=== PATIENT | female | born 1980 | race Caucasian/White ===

== ENCOUNTER → 2016-12-01 | Outpatient (CLI) | payer MEDICAID | LOC: FIMAGING 10:11 | PROVIDERS: ATTEND Internal Medicine | DX: K76.0 Fatty (change of) liver, not elsewhere classified (principal) ==

== ENCOUNTER 2017-01-03 22:33 | Emergency (ER) | payer MEDICAID ==
[2017-01-03 22:46] VITALS: TEMP 98.1; O2SAT 95
[2017-01-03] MEDS ORDERED: chlordiazePOXIDE 25 MG CAP PO ONE (23:49)
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
[2017-01-04 01:22] VITALS: BP 130/84; PULSE 93; RESP 12
== END 2017-01-04 01:20 | disposition home or self-care (01) ==
DX: S00.83XA Contusion of other part of head, initial encounter (principal); S80.12XA Contusion of left lower leg, initial encounter; V49.50XA Passenger injured in collision with unspecified motor vehicles in traffic accident, initial encounter; Y92.410 Unspecified street and highway as the place of occurrence of the external cause

== ENCOUNTER → 2018-07-14 | Outpatient (CLI) | payer MEDICAID | LOC: FIMAGING 11:13 | PROVIDERS: ATTEND Registered Nurse | DX: M79.641 Pain in right hand (principal) ==

== ENCOUNTER 2018-09-07 19:09 | Emergency (ER) | payer MEDICAID ==
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
[2018-09-07 19:36] LABS: PLATELET COUNT 181 10^3/uL (150-400)
[2018-09-08] MEDS ORDERED: CHLORDIAZEPOXIDE 25MG PREPK#6 BTL TAKEHOME ONE (05:07)
[2018-09-08] MEDS ORDERED: chlordiazePOXIDE 25 MG CAP PO ONE (05:09)
[2018-09-08 05:35] VITALS: BP 121/72
== END 2018-09-08 05:44 | disposition home or self-care (01) ==
LOC: EDUNIT#
DX: S00.81XA Abrasion of other part of head, initial encounter (principal); F10.920 Alcohol use, unspecified with intoxication, uncomplicated; W19.XXXA Unspecified fall, initial encounter; Y92.480 Sidewalk as the place of occurrence of the external cause; Y90.8 Blood alcohol level of 240 mg/100 ml or more
CPT/HCPCS: G0480

== ENCOUNTER 2018-12-26 13:18 | Inpatient (IN) | payer MEDICAID ==
[2018-12-26] MEDS ORDERED: LORazepam 2 MG/ML INJ IVP ONE (13:25)
--- NOTE | 2018-12-26 13:29 | EDPHY ---
H & P Time Seen by Provider: 12/26/18 13:26 HPI/ROS: CHIEF COMPLAINT: Altered mental status Limitations: Nonverbal HISTORY OF PRESENT ILLNESS: 38-year-old female with alcoholism and depression presents with altered mental status. She lives alone and was found by a friend on her bed this morning, alert, but verbally unresponsive. She was shaking all over, but no LOC. On EMS arrival, blood sugar was 184. Given Versed 2 mg IV in route. Per parents, h/o alcohol withdrawal seizures, not similar to today. On Vivitrol IM monthly, last dose 2-3 weeks ago. Uses marijuana, no other known drug use. No prior suicidal ideation. REVIEW OF SYSTEMS: Unable to obtain Source: Family, EMS - Personal History Tetanus Vaccine Date: < 10 years - Medical/Surgical History Hx Asthma: No Hx Chronic Respiratory Disease: No Hx Diabetes: No Hx Cardiac Disease: No Hx Renal Disease: No Hx Cirrhosis: No Hx Alcoholism: Yes Hx HIV/AIDS: No Hx Splenectomy or Spleen Trauma: No Other PMH: ETOH, panic attack, etoh seizures - Social History Smoking Status: Never smoked Additional Social History: Lives with family - Physical Exam Exam: General Appearance: Alert, looking all around, appears to be hallucinating Eyes: Pupils equal and round, 3 mm, no conjunctival pallor or injection ENT, Mouth: Mucous membranes moist Neck: Normal inspection Respiratory: Lungs are clear to auscultation Cardiovascular: Regular tachycardia Gastrointestinal: Abdomen is soft, no apparent tenderness Neurological: Alert, does not follow commands, moves all extremities equally Skin: Warm and dry Extremities: Bruising on knees Psychiatric: agitated Constitutional: Initial Vital Signs Temperature (C) 36.8 C 12/26/18 13:26 Heart Rate 94 12/26/18 13:26 Respiratory Rate 18 12/26/18 13:26 Blood Pressure 135/83 H 12/26/18 13:26 O2 Sat (%) 92 12/26/18 13:26 O2 Delivery Mode Nasal Cannula O2 (L/minute) 2 Allergies/Adverse Reactions: No Known Allergies Allergy (Verified 12/26/18 13:26) Home Medications: Medication Instructions Recorded Vivitrol Xr 380 mg IM Q30D 12/26/18 Medical Decision Making - Diagnostics EKG Interpretation: EKG interpreted by me reveals sinus tachycardia, rate 102, ST segment depression anteriorly, prolonged QT interval. Interpretation: Abnormal EKG Imaging Results: Chest X-Ray 12/26/18 14:06 Impression: Normal for supine portable technique. Head CT 12/26/18 14:06 Impression: No acute intracranial process. Findings and recommendations discussed with HEATH MARTINEZ at 1546 hour, 2018. Imaging: Discussed imaging studies w/ mine manager Radiologist Procedures: Procedure: Lumbar puncture. Indication: Altered mental status, leukocytosis Implied consent from the patient, given altered mental status and inability to make a medical decision. Versed 4 mg IV given prior to the procedure. A lumbar puncture was performed with the patient in the left lateral decubitus position after the patient was prepped and draped in the usual fashion. The L4- 5 interspace was anesthetized with 1% lidocaine. Approximately 4 cc of clear fluid was obtained. Opening pressure was not obtained. There were no complications. The procedure was performed by myself. ED Course/Re-evaluation: This patient presents with acute psychosis. Ativan 1 mg IV and Haldol 5 mg IV given on patient arrival. Most likely drug related, considering alcohol withdrawal, ?sz, Will place pt on CIWA protocol. The patient was also placed in soft restraints for her safety. Discussion with parents, h/o alcoholism and alcohol related seizures. Pt uses THC, no other drug use and no SI or recent illness. Laboratory tests reveal hyponatremia and hypokalemia. IV potassium given. Unclear fluid status, will order urine sodium and osm for further eval of hyponatremia. Elevated CPK consistent with mild rhabdomyolysis, will need gentle IVF to help clear rhabdo. In addition her white blood cell count is quite elevated at 33K. CXR: no infiltrate. She is afebrile here, however given persistent altered mental status she will need to have an LP to rule out meningitis after CT scan of the head. CT scan is unremarkable. Lumbar puncture performed by me. Versed 4 mg IV required to control agitation. LP obtained of 3rd attempt, difficult d/t pt's agitation and requiring Versed 4mg IV. CSF is initially bloody and clears appropriately. During LP, pt speaking appropriately, telling us to stop holding her leg. This is her most coherent speech so far. Suspect drug/alcohol related AMS, possible sz. Consulted with Dr. Jett. Meets SIRS criteria with tachycardia and leukocytosis. Will hold off on antibiotics, pending the results of the lumbar puncture. Considered sepsis, decision not to obtain lactate, as it will likely be elevated for multiple reasons in this pt and aggressive IVF not indicated in this pt with severe hyponatremia, likely SIADH. If source of infection identified, will treat. Will admit to ICU. I spent a total of 40 minutes of critical care time in obtaining history, performing a physical exam, medication ordering, reassessments, bedside monitoring of interventions, collecting and interpreting tests and discussion with consultants but not including time spent performing procedures. Differential Diagnosis: Altered mental status including but not limited to hypoglycemia, infectious process, electrolyte abnormality, head injury, CVA, and intoxicants. - Data Points Laboratory Results: Laboratory Results 12/26/18 13:30 12/26/18 13:30 Medications Given: Amoxicillin/Clavulanate Potassium (Augmentin 875mg) 875 mg PO BID GREGORY PRN Reason: Protocol Stop: 12/31/18 23:59 Last Admin: 12/29/18 08:45 Dose: 875 mg Enoxaparin Sodium (Lovenox) 40 mg SC DAILY GREGORY Stop: 06/25/19 08:59 Last Admin: 12/29/18 08:45 Dose: 40 mg Lactated Ringer's (Lr) 1,000 mls @ 250 mls/hr IV CONT GREGORY Stop: 06/26/19 20:29 Last Admin: 12/29/18 06:10 Dose: 1,000 mls Lorazepam (Ativan Injection) 0 mg IVP Q1H PRN; Protocol PRN Reason: Alcohol Withdrawal w/IV access Stop: 06/24/19 16:44 Last Admin: 12/28/18 09:37 Dose: 2 mg Pantoprazole Sodium (Protonix) 40 mg PO DAILY GREGORY Stop: 06/26/19 19:29 Last Admin: 12/29/18 08:45 Dose: 40 mg Thiamine HCl (Vitamin B-1) 100 mg PO DAILY GREGORY Stop: 06/27/19 08:59 Last Admin: 12/29/18 08:45 Dose: 100 mg Discontinued Medications Haloperidol Lactate (Haldol Injection) 5 mg IVP EDNOW ONE Stop: 12/26/18 14:02 Last Admin: 12/26/18 14:01 Dose: 5 mg Potassium Chloride (Potassium Cl 20 Meq (Premix)) 100 mls @ 50 mls/hr IV EDNOW ONE Stop: 12/26/18 16:30 Last Admin: 12/26/18 15:21 Dose: Not Given Potassium Chloride (Potassium Cl 10 Meq (Premix)) 100 mls @ 100 mls/hr IV Q1H [facility] Stop: 12/26/18 16:59 Last Admin: 12/26/18 16:23 Dose: 100 mls Sodium Chloride (Ns) 500 mls @ 1,000 mls/hr IV EDNOW ONE PRN Reason: Protocol Stop: 12/26/18 16:12 Last Admin: 12/26/18 15:50 Dose: 500 mls Thiamine HCl 500 mg/ Sodium (Chloride) 105 mls @ 210 mls/hr IV DAILY [facility] Stop: 12/28/18 09:01 Last Admin: 12/28/18 09:16 Dose: 105 mls Ceftriaxone Sodium 2 gm/ (Sodium Chloride) 50 mls @ 100 mls/hr IV Q12H [facility] PRN Reason: Protocol Stop: 01/25/19 20:59 Last Admin: 12/26/18 22:14 Dose: 50 mls Ampicillin Sodium 2 gm/ Sodium (Chloride) 100 mls @ 200 mls/hr IV Q4H [facility] PRN Reason: Protocol Stop: 01/25/19 20:44 Last Admin: 12/27/18 04:24 Dose: 100 mls Acyclovir 600 mg/ Dextrose 262 mls @ 250 mls/hr IV Q8H [facility] Stop: 01/25/19 20:59 Last Admin: 12/27/18 04:23 Dose: 262 mls Potassium Chloride (Potassium Cl 10 Meq (Premix)) 100 mls @ 100 mls/hr IV Q1H [facility] Stop: 12/27/18 00:59 Last Admin: 12/26/18 23:58 Dose: 100 mls Vancomycin HCl 1.5 gm/ Sodium (Chloride) 250 mls @ 166.667 mls/hr IV ONCE ONE Stop: 12/26/18 22:29 Last Admin: 12/26/18 22:48 Dose: 250 mls Vancomycin/Sodium Chloride (Vancomycin 1 Gm (Premix)) 250 mls @ 250 mls/hr IV Q8H [facility] Stop: 01/26/19 04:59 Last Admin: 12/27/18 05:35 Dose: 250 mls Dextrose/Sodium Chloride (D5w 1/2 Ns) 1,000 mls @ 150 mls/hr IV CONT GREGORY Stop: 06/25/19 00:44 Last Admin: 12/27/18 01:29 Dose: 1,000 mls Ceftriaxone Sodium 2 gm/ (Sodium Chloride) 50 mls @ 100 mls/hr IV DAILY [facility] PRN Reason: Protocol Stop: 01/26/19 08:59 Last Admin: 12/28/18 08:41 Dose: 50 mls Potassium Chloride 30 meq/ (Lactated Ringer's) 1,000 mls @ 200 mls/hr IV CONT GREGORY Stop: 06/25/19 16:44 Last Admin: 12/27/18 17:42 Dose: 1,000 mls Potassium Chloride (Potassium Cl 10 Meq (Premix)) 100 mls @ 100 mls/hr IV Q1H [facility] Stop: 12/27/18 19:59 Last Admin: 12/27/18 19:29 Dose: 100 mls Potassium Phosphate 20 mmol/ (Dextrose) 256.6667 mls @ 42.778 mls/hr IV ONCE@ 12 ONE Stop: 12/29/18 01:59 Last Admin: 12/28/18 20:10 Dose: 256.6667 mls Potassium Phosphate 10 mmol/ (Dextrose) 253.3333 mls @ 42.222 mls/hr IV ONCE@ 12 ONE Stop: 12/29/18 11:40 Last Admin: 12/29/18 06:09 Dose: 253.3333 mls Magnesium Sulfate (Magnesium Sulf 2 Gm (Premix)) 50 mls @ 50 mls/hr IV ONCE ONE Stop: 12/29/18 06:40 Last Admin: 12/29/18 06:09 Dose: 50 mls Lorazepam (Ativan Injection) 1 mg IVP EDNOW ONE Stop: 12/26/18 13:26 Last Admin: 12/26/18 13:40 Dose: 1 mg Lorazepam (Ativan Injection) 0 mg IVP Q1H PRN; Protocol PRN Reason: Alcohol Withdrawal w/IV access Stop: 12/27/18 01:53 Last Admin: 12/26/18 14:33 Dose: 4 mg Midazolam HCl (Versed) 2 mg IVP ONCE ONE Stop: 12/26/18 16:01 Last Admin: 12/26/18 16:00 Dose: 2 mg Midazolam HCl (Versed) 2 mg IVP ONCE ONE Stop: 12/26/18 16:06 Last Admin: 12/26/18 16:05 Dose: 2 mg Potassium Chloride (Klor-Con) 10 - 40 meq PO ONCE ONE PRN Reason: Protocol Stop: 12/27/18 01:18 Last Admin: 12/27/18 01:29 Dose: 30 meq Potassium Chloride (Klor-Con) 10 - 40 meq PO ONCE ONE PRN Reason: Protocol Stop: 12/27/18 05:27 Last Admin: 12/27/18 05:35 Dose: 40 meq Potassium Chloride (Klor-Con) 40 meq PO Q2 [facility] Stop: 12/27/18 12:01 Last Admin: 12/27/18 13:48 Dose: 40 meq Potassium Chloride (Klor-Con) 40 meq PO Q2 [facility] Stop: 12/27/18 20:01 Last Admin: 12/27/18 19:24 Dose: 40 meq Departure - Departure Disposition: [facility] Acute Clinical Impression: Encephalopathy acute Condition: Serious
[2018-12-26] MEDS ORDERED: HALOPERIDOL LACT 5 MG/ML INJ ONE (13:50)
[2018-12-26] MEDS ORDERED: LORazepam 1 MG TAB PO PRN (13:53)
[2018-12-26] MEDS ORDERED: LORazepam 2 MG/ML INJ IVP PRN ×2 (13:53→16:07)
[2018-12-26 14:00] LABS: PLATELET COUNT 332 10^3/uL (150-400)
[2018-12-26] MEDS ORDERED: HALOPERIDOL LACT 5 MG/ML INJ IVP ONE (14:01)
[2018-12-26 14:23] LABS: CREATINE KINASE 1598 IU/L (0-156)
[2018-12-26] MEDS ORDERED: POTASSIUM Cl (KCl) 100 ML IV ONE (14:31)
[2018-12-26] MEDS: POTASSIUM Cl (KCl) 100 ML IV SCH ×6 (14:52→23:58)
[2018-12-26 14:54] LABS: INR 0.99 (0.83-1.16); PROTIME(PATIENT) 12.7 SEC (12.0-15.0)
[2018-12-26] MEDS ORDERED: NS 500 ML IV ONE (15:43)
[2018-12-26] MEDS ORDERED: MIDAZOLAM 2 MG/2 ML VIAL ONE ×2 (15:57→16:01)
[2018-12-26] MEDS ORDERED: MIDAZOLAM 2 MG/2 ML VIAL IVP ONE ×2 (16:00→16:05)
[2018-12-26] MEDS ORDERED: ACETAMINOPHEN 325 MG TAB PO PRN (16:07)
[2018-12-26] MEDS ORDERED: PROTOCOL POTASSIUM 1 DOSE MISC PRN (16:12)
--- NOTE | 2018-12-26 16:43 | PDGENHP ---
History and Physical - Chief Complaint unresponsive - History of Present Illness 38yo F with history of alcoholism and depression who was brought in after being found unresponsive. History is limited as patient is unable to provide any information. The patient lives alone and reportedly a friend found her this morning confused, seeming alert but verbally unresponsive. She appeared to be shaking all over. EMS was called and on arrival her blood sugar was 184. She was agitated and given 2mg IV versed in route to the hospital. In the ED, she was very agitated and given 5mg haldol and 5mg ativan. A non-con CT of her head was unremarkable. LP was performed after several attempts (she required an additional 4mg versed for agitation). Toxicology screening was negative except for marijuana. She was found to be severely hyponatremic to 122. She was given 500ml NS in the ED. She is being admitted to the ICU for further evaluation and care. I did discuss with patient's mother. She last saw her on Sunday and was in her usual state of health. She has recently started on vivitrol injection to help with her alcohol addiction and has been cutting back on her drinking. However, the mother is unsure how much she is currently drinking. The patient does have a history of alcohol withdrawal seizures in the past. Mother reports heavy marijuana use but that she typically doesn't use any other illicit substances. History Information - Allergies/Home Medication List Allergies/Adverse Reactions: No Known Allergies Allergy (Verified 12/26/18 13:26) Home Medications: Vivitrol Xr 380 mg IM Q30D 12/26/18 [Last Taken 12/04/18] I have personally reviewed and updated: family history, medical history, social history, surgical history - Past Medical History Additional medical history: alcoholism, depression, anxiety - Surgical History Reports: no pertinent surgical hx - Family History Positive for: non-pertinent - Social History Smoking Status: Never smoked Alcohol Use: Other (see HPI) Drug Use: Marijuana Additional social history: Lives alone. Occasionally her daughter will live with her. Review of Systems Review of Systems: Unable to obtain due to patient's mental status. Physical Exam Physical Exam: Temp Pulse Resp BP Pulse Ox 37.4 C 110 H 14 117/77 93 12/26/18 16:28 12/26/18 16:28 12/26/18 16:28 12/26/18 16:28 12/26/18 16:28 O2 (L/minute) 2 Constitutional: other (sedated but diaphoretic) Eyes: other (pinpoint pupils) Cardiovascular: no murmur, rub, or gallop, tachycardia, No edema Respiratory: no respiratory distress, no rales or rhonchi, clear to auscultation Gastrointestinal: normoactive bowel sounds, soft, non-tender abdomen, no palpable masses Genitourinary: no bladder fullness, no bladder tenderness Skin: other (no janeway lesions or osler nodes) Neurologic: other (sedated, right ankle clonus and hyperreflexia at right knee) Psychiatric: encephalopathic Lab Data & Imaging Review 12/26/18 13:30 12/26/18 19:59 WBC 36.68 10^3/uL (3.80-9.50) H 12/26/18 13:30 RBC 5.20 10^6/uL (4.18-5.33) 12/26/18 13:30 Hgb 18.0 g/dL (12.6-16.3) H 12/26/18 13:30 Hct 48.2 % (38.0-47.0) H 12/26/18 13:30 MCV 92.7 fL (81.5-99.8) 12/26/18 13:30 MCH 34.6 pg (27.9-34.1) H 12/26/18 13:30 MCHC 37.3 g/dL (32.4-36.7) H 12/26/18 13:30 RDW 12.1 % (11.5-15.2) 12/26/18 13:30 Plt Count 332 10^3/uL (150-400) 12/26/18 13:30 MPV 10.3 fL (8.7-11.7) 12/26/18 13:30 Neut % (Auto) 86.8 % (39.3-74.2) H 12/26/18 13:30 Lymph % (Auto) 4.2 % (15.0-45.0) L 12/26/18 13:30 Clarke % (Auto) 7.3 % (4.5-13.0) 12/26/18 13:30 Eos % (Auto) 0.0 % (0.6-7.6) L 12/26/18 13:30 Baso % (Auto) 0.2 % (0.3-1.7) L 12/26/18 13:30 Nucleat RBC Rel Count 0.0 % (0.0-0.2) 12/26/18 13:30 Absolute Neuts (auto) 31.84 10^3/uL (1.70-6.50) H 12/26/18 13:30 Absolute Lymphs (auto) 1.54 10^3/uL (1.00-3.00) 12/26/18 13:30 Absolute Monos (auto) 2.68 10^3/uL (0.30-0.80) H 12/26/18 13:30 Absolute Eos (auto) 0.00 10^3/uL (0.03-0.40) L 12/26/18 13:30 Absolute Basos (auto) 0.07 10^3/uL (0.02-0.10) 12/26/18 13:30 Absolute Nucleated RBC 0.00 10^3/uL (0-0.01) 12/26/18 13:30 Immature Gran % 1.5 % (0.0-1.1) H 12/26/18 13:30 Immature Gran # 0.55 10^3/uL (0.00-0.10) H 12/26/18 13:30 RBC/WBC/PLT Morphology TNP 12/26/18 13:30 Platelet Estimate TNP 12/26/18 13:30 PT 12.7 SEC (12.0-15.0) 12/26/18 13:30 INR 0.99 (0.83-1.16) 12/26/18 13:30 APTT 28.1 SEC (23.0-38.0) 12/26/18 13:30 Sodium 122 mEq/L (135-145) L 12/26/18 13:30 Potassium 2.4 mEq/L (3.5-5.2) L* 12/26/18 13:30 Chloride 66 mEq/L (97-110) L 12/26/18 13:30 Carbon Dioxide 26 mEq/l (22-31) 12/26/18 13:30 Anion Gap 30 mEq/L (6-14) H 12/26/18 13:30 BUN 14 mg/dL (7-23) 12/26/18 13:30 Creatinine 0.9 mg/dL (0.6-1.0) 12/26/18 13:30 Estimated GFR > 60 12/26/18 13:30 Glucose 87 mg/dL (70-100) 12/26/18 13:30 Calcium 10.7 mg/dL (8.5-10.4) H 12/26/18 13:30 Phosphorus 3.1 mg/dL (2.5-4.5) 12/26/18 13:30 Total Bilirubin 1.7 mg/dL (0.1-1.4) H 12/26/18 13:30 Conjugated Bilirubin 0.3 mg/dL (0.0-0.5) 12/26/18 13:30 Unconjugated Bilirubin 1.4 mg/dL (0.0-1.1) H 12/26/18 13:30 AST 62 IU/L (14-46) H 12/26/18 13:30 ALT 30 IU/L (9-52) 12/26/18 13:30 Alkaline Phosphatase 103 IU/L (38-126) 12/26/18 13:30 Creatine Kinase 1598 IU/L (0-156) H 12/26/18 13:30 CK-MB (CK-2) Fraction 6.73 ng/mL (0.00-4.55) H 12/26/18 13:30 CK-MB (CK-2) % 0.4 % (0.0-4.0) 12/26/18 13:30 Creatine Kinase Interp NEGATIVE (NEGATIVE) 12/26/18 13:30 Total Protein 8.6 g/dL (6.3-8.2) H 12/26/18 13:30 Albumin 5.5 g/dL (3.5-5.0) H 12/26/18 13:30 Lipase 47 IU/L (23-300) 12/26/18 13:30 Beta HCG, Qual NEGATIVE 12/26/18 13:30 Urine Color YELLOW 12/26/18 14:18 Urine Appearance HAZY 12/26/18 14:18 Urine pH 5.0 (5.0-7.5) 12/26/18 14:18 Ur Specific Enderlin 1.019 (1.002-1.030) 12/26/18 14:18 Urine Protein 2+ (NEGATIVE) H 12/26/18 14:18 Urine Ketones 2+ (NEGATIVE) H 12/26/18 14:18 Urine Blood NEGATIVE (NEGATIVE) 12/26/18 14:18 Urine Nitrate NEGATIVE (NEGATIVE) 12/26/18 14:18 Urine Bilirubin NEGATIVE (NEGATIVE) 12/26/18 14:18 Urine Urobilinogen NEGATIVE EU (0.2-1.0) 12/26/18 14:18 Ur Leukocyte Esterase NEGATIVE (NEGATIVE) 12/26/18 14:18 Urine RBC 1-3 /hpf (0-3) 12/26/18 14:18 Urine WBC 1-3 /hpf (0-3) 12/26/18 14:18 Ur Epithelial Cells TRACE /lpf (NONE-1+) 12/26/18 14:18 Hyaline Casts 15-25 /lpf (0-1) H 12/26/18 14:18 Urine Mucus TRACE /lpf (NONE-1+) 12/26/18 14:18 Urine Osmolality 633 mosmo/kg (300-900) 12/26/18 14:30 Ur Random Creatinine 124.7 mg/dL 12/26/18 14:30 Ur Random Sodium 44 mEq/L (30-90) 12/26/18 14:30 Urine Glucose NEGATIVE (NEGATIVE) 12/26/18 14:18 CSF Tube Number 4 12/26/18 16:18 CSF Appearance CLEAR (CLEAR) 12/26/18 16:18 CSF Color COLORLESS (COLORLESS) 12/26/18 16:18 CSF Supernatant COLORLESS (COLORLESS) 12/26/18 16:18 Salicylates < 1.0 mg/dL (2.0-20.0) L 12/26/18 13:30 Urine Opiates Screen NEGATIVE (NEGATIVE) 12/26/18 14:18 Acetaminophen < 10 mcg/mL (10-30) L 12/26/18 13:30 Urine Barbiturates NEGATIVE (NEGATIVE) 12/26/18 14:18 Ur Phencyclidine Scrn NEGATIVE (NEGATIVE) 12/26/18 14:18 Ur Amphetamine Screen NEGATIVE (NEGATIVE) 12/26/18 14:18 U Benzodiazepines Scrn NEGATIVE (NEGATIVE) 12/26/18 14:18 Urine Cocaine Screen NEGATIVE (NEGATIVE) 12/26/18 14:18 U Marijuana (THC) Screen NON-NEGATIVE (NEGATIVE) H 12/26/18 14:18 Ethyl Alcohol < 10 mg/dL (0-10) 12/26/18 13:30 Interpretation: CXR: clear lungs, no effusion, no pulmonary edema, normal heart size (interp by me) EKG additional interpertation: ECG: sinus tachy, poor quality, nonspecific repolarization abnormality, no clear ischemic ST-T segment changes, prolonged qt (interp by me) Assessment & Plan Assessment: 38yo F with history of alcoholism and depression who was brought in after being found confused. Plan: 1. Acute toxic/metabolic encephalopathy: Broad differential including meningitis , hyponatremia, seizure (either alcohol withdrawal or related to hyopNa), toxic ingestion of unknown substance. Has impressive leukocytosis and LP with elevated WBC w/neutrophil predominance (although bloody tap), will treat for meningitis. No seizure activity since arrival. She is currently protecting her airway. - Started antibiotics for bacterial meningitis in addition to acyclovir - Await additional CSF studies and culture. Blood cultures pending - [facility] protocol ordered - Sodium management per below - Consider getting spot EEG in AM and obtaining brain MRI once stabilized 2. Hyponatremia: Suspect this may be multifactorial from poor solute (tea and toast), inadequate intake, and SIADH. - s/p 750ml NS and Na increased 122->125. will monitor off IV fluids for now - q4h Na checks, goal no higher than 130 by afternoon of 12/27 3. SIRS: Leukocytosis, tachy. No clear source of infection. Treating as above. 4. Hypokalemia: Severe. In setting of alcohol abuse. - Placed on ICU K replacement protocol, also monitoring Magnesium levels - Telemetry 5. Rhabdomyolysis: CK rising. Challenging situation as limited in ability to give fluids with hypoNa. - Monitor CK levels, administer fluids once Na stabilized 6. Polycythemia: Suspect hemoconcentrated. Will recheck after IV fluids. 7. Alcohol abuse: She recently started on vivitrol. Unclear how much she is currently drinking. VTE ppx: LMWH Code: full Dispo: admit as inpatient to ICU I spent a total of 45 minutes of critical care time involving this patient.
[2018-12-26] MEDS ORDERED: PROTOCOL MAGNESIUM 1 DOSE IV PRN (16:44)
[2018-12-26] MEDS ORDERED: FLUMAZENIL 0.5 MG/5 ML MDV IVP PRN (16:45)
[2018-12-26] MEDS: THIAMINE HCL 500 MG in NS 100 ML IV SCH (18:00)
[2018-12-26] MEDS: LORazepam 2 MG/ML INJ IVP PRN (19:15)
--- NOTE | 2018-12-26 19:38 | CPEKG ---
Test Reason : OPEN Blood Pressure : / mmHG Vent. Rate : 102 BPM Atrial Rate : 102 BPM P-R Int : 126 ms QRS Dur : 088 ms QT Int : 452 ms P-R-T Axes : 084 086 077 degrees QTc Int : 589 ms Sinus tachycardia Biatrial enlargement Repol abnrm suggests ischemia, anterolateral Prolonged QT interval Confirmed by Lisbeth Louis ([id number]) on 12/26/2018 7:38:51 PM Referred By: Lisbeth Louis Confirmed By:Lisbeth Louis
[2018-12-26] MEDS ORDERED: AMPICILLIN SODIUM 2 GM in NS 100 ML IV SCH (21:00)
[2018-12-26] MEDS ORDERED: VANCOMYCIN 1.5 GM in NS 250 ML IV ONE (21:00)
[2018-12-26 21:16] LABS: CREATINE KINASE 4099 IU/L (0-156)
[2018-12-26] MEDS: AMPICILLIN SODIUM 2 GM in NS 100 ML IV SCH (21:36)
[2018-12-26] MEDS: D5W IV SCH (21:42)
[2018-12-26] MEDS: ACYCLOVIR IV SCH (21:42)
[2018-12-27] MEDS ORDERED: D5W 1/2 NS 1,000 ML IV SCH (00:45)
[2018-12-27] MEDS ORDERED: PROTOCOL POTASSIUM 1 DOSE MISC PRN (01:14)
[2018-12-27] MEDS ORDERED: POTASSIUM CL 10 MEQ TAB PO ONE ×2 (01:17→05:26)
[2018-12-27] MEDS: AMPICILLIN SODIUM 2 GM in NS 100 ML IV SCH ×2 (01:29→04:24)
[2018-12-27] MEDS: D5W IV SCH (04:23)
[2018-12-27] MEDS: ACYCLOVIR IV SCH (04:23)
[2018-12-27] MEDS ORDERED: VANCOMYCIN HCL/NORMAL SALINE 250 ML IV SCH (05:00)
[2018-12-27 05:06] LABS: PLATELET COUNT 262 10^3/uL (150-400)
[2018-12-27 05:29] LABS: CREATINE KINASE 3049 IU/L (0-156)
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
[2018-12-27] MEDS ORDERED: POTASSIUM Cl (KCl) 40 MEQ in D5W 1/2 NS 1,000 ML IV SCH (09:00)
[2018-12-27] MEDS: POTASSIUM CL 20 MEQ TAB PO SCH ×5 (09:16→19:24)
[2018-12-27] MEDS: ENOXAPARIN 40 MG/0.4 ML SYR SC SCH (09:16)
[2018-12-27] MEDS: THIAMINE HCL 500 MG in NS 100 ML IV SCH (09:25)
[2018-12-27 12:21] LABS: HEPATITIS B SURFACE ANTIGEN NEGATIVE (NEGATIVE)
[2018-12-27 12:45] LABS: HEPATITIS C ANTIBODY TOTAL NEGATIVE (NEGATIVE)
--- NOTE | 2018-12-27 12:48 | PDMN ---
Medical Necessity Medical necessity: Pt meets IP criteria per & [facility] General Admission Criteria; est los >2 mn for eval/tx of acute toxic/metabolic encephalopathy w/ electrolyte disturbances, SIRS & extensive bruising; pt found down due to unknown source of AMS; admit for further workup/monitoring, ID consult, IV abx, electrolyte replacement/CIWA protocols; hx alcoholism w/withdrawal seizures, depression; per H&P & order 12/26/18
--- NOTE | 2018-12-27 13:07 | ASMTCASEMG ---
Living Arrangements What is your living Answers: Alone arrangement? Who do you live with? Type Of Residence What kind of residence do Answers: Apartment you live in? Discharge Plan Comments Coordination Status Comments Notes: Patient is a 38yo single female with hx of alcoholism and depression who was brought to [facility] ER after being found unresponsive. Patient's mother reports she was recently started on a Vivitrol injection to help with her etoh addiction. However, the mother does not know how much she has been currently drinking. Patient does have a daughter who occasionally comes to visit her. Patient is being admitted for acute toxic metabolic encephalopathy, hyponatremia, SIRS, hypokalemia, rhabodomyolysis, polycythemia, and etoh abuse. Patient's nurse reports she has multiple bruises and scrapes that are not consistent with a fall. Patient has been inconsistent in answering questions about her circumstances. Patient does have a boyfriend who is in [employer] but gets out on work release. Dr. Weaver with ID is evaluating patient for meningitis. CATTLE TESTER/wound care have been ordered. D/C plan TBD. CM will follow. Date Signed: 12/27/2018 01:06 PM Electronically Signed By:Darby Chavez LCSW
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
--- NOTE | 2018-12-27 15:08 | HOSPPROG ---
Hospitalist Progress Note Assessment/Plan: 38 year old female with pmh of polysubstance abuse, etoh abuse, brought in with hyponatremia and encephalopathy. 1. Acute toxic/metabolic encephalopathy: she is more awake today but still clearly confused. I am concerned she may have ingested something. she does not seem to be withdrawing, low susp for meningitis at this point. she is more clear compared to this morning however. -seen by ID, vanc/amp stopped, low susp for meningitis -cont rocephin for possible pna/uti -monitor cultures -correct electrolyte imbalances. -monitor for wd 2. Hyponatremia: Suspect this may be multifactorial from poor solute (tea and toast), inadequate intake, and SIADH. -up to 130 today. -on D51/2 NS -repeat sodium BID. -goal by tomorrow would be 136-138 3. SIRS: Leukocytosis, tachy. No clear source of infection. Treating as above. 4. Hypokalemia: Severe. In setting of alcohol abuse. - Placed on ICU K replacement protocol, also monitoring Magnesium levels - Telemetry 5. Rhabdomyolysis: CK rising. Challenging situation as limited in ability to give fluids with hypoNa. - Monitor CK levels, administer fluids once Na stabilized 6. Polycythemia: Suspect hemoconcentrated. Will recheck after IV fluids. 7. Alcohol abuse: She recently started on vivitrol. Unclear how much she is currently drinking. VTE ppx: LMWH Code: full Dispo: remain icu i spent 40 minutes of critical care time on the management of this patient Subjective: no complaints. Objective: Vital Signs Temp Pulse Resp BP Pulse Ox 37.3 C 96 26 H 125/89 H 94 12/27/18 13:00 12/27/18 13:00 12/27/18 13:00 12/27/18 13:00 12/27/18 13:00 Laboratory Results 12/27/18 04:20 12/26/18 12/27/18 12/28/18 05:59 05:59 05:59 Intake Total 2833 Output Total 3050 Balance -217 PT 12.7 SEC (12.0-15.0) 12/26/18 13:30 INR 0.99 (0.83-1.16) 12/26/18 13:30 - Physical Exam Constitutional: no apparent distress, appears nourished, not in pain Eyes: PERRL, anicteric sclera, EOMI Ears, Nose, Mouth, Throat: moist mucous membranes, hearing normal, ears appear normal, no oral mucosal ulcers Cardiovascular: regular rate and rhythym, no murmur, rub, or gallop Respiratory: no respiratory distress, no rales or rhonchi, clear to auscultation Gastrointestinal: normoactive bowel sounds, soft, non-tender abdomen, no palpable masses Genitourinary: no bladder fullness, no bladder tenderness, no renal bruits Skin: no rashes or abrasions, no fluctuance, no induration Musculoskeletal: full muscle strength, no muscle tenderness, normal joint ROM Neurologic: other (knows name, and where she is, still getting year, month and day wrong. ) Psychiatric: encephalopathic Lymph, Heme, Immunologic: no cervical LAD, no supraclavicular LAD ICD10 Worksheet Patient Problems: Problems Problem Status Onset Encephalopathy acute Acute - ICD10 Problem Qualifiers (1) Encephalopathy acute
[2018-12-27] MEDS ORDERED: POTASSIUM CL 20 MEQ TAB PO SCH (16:45)
[2018-12-27] MEDS ORDERED: POTASSIUM CL IV SCH (16:45)
[2018-12-27] MEDS ORDERED: LR IV SCH (16:45)
[2018-12-27] MEDS: POTASSIUM Cl (KCl) 100 ML IV SCH ×3 (17:49→19:29)
[2018-12-27] MEDS: LORazepam 2 MG/ML INJ IVP PRN (21:04)
[2018-12-28] MEDS: LORazepam 2 MG/ML INJ IVP PRN ×2 (04:30→09:37)
[2018-12-28 05:44] LABS: PLATELET COUNT 217 10^3/uL (150-400)
[2018-12-28 06:19] LABS: CREATINE KINASE 5118 IU/L (0-156)
[2018-12-28] MEDS: ENOXAPARIN 40 MG/0.4 ML SYR SC SCH (08:41)
[2018-12-28] MEDS: THIAMINE HCL 500 MG in NS 100 ML IV SCH (09:16)
--- NOTE | 2018-12-28 09:48 | PDINTPN ---
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 # encephalopathy. Severe. Initial concerns for meningitis. CSF had mild pleocytosis but given fast interval improvement and mom normal CSF glucose and protein meningitis unlikely. Although Utox was negative her alcohol level was elevated and she endorses taking synthetic drug # rhabdomyolysis. Prolonged period of being down plus stimulant drug use # agitation. Life-threatening. Requiring high-dose antipsychotics and benzodiazepines. # hypokalemia. Improved. Initially severe and life-threatening. Received almost 400 meq in 24 hours. Suspect due to drug use and poor solute intake # hyponatremia. Resolved, Initially severe. suspect due to poor drug use and poor solute intake # ecchymoses. Bilateral anterior shins. Appears traumatic related. Denies abuse or assault. She thinks she may have ran into things while she was intoxicated # alcohol and drug intoxication. PLAN # LR 250/hr until rhabdo resolves # benzos and antipsychotics for for severe agitation # narrow antibiotics. Agree with ceftriaxone 2 g daily to complete a 5 day total course # CIWA for possible alcohol withdrawal # multivitamin, thiamine, folate # Feeding - regular diet # Analgesia APAP, # Sedation trazodone for sleep # Thromboprophylaxis - SQ hep # Head of bed elevated # Ulcer prophylaxis - H2 chio # Glucose SSI # Skin no skin breakdown # Delirium - delirium precautions Objective: Vital Signs Temp Pulse Resp BP Pulse Ox 37.1 C 135 H 22 H 135/93 H 93 12/27/18 20:00 12/28/18 08:00 12/28/18 06:00 12/28/18 08:00 12/28/18 08:00 Laboratory Results 12/28/18 05:30 12/28/18 05:30 12/27/18 12/28/18 12/29/18 05:59 05:59 05:59 Intake Total 2833 6465 Output Total 3052 6340 Balance -217 115 PT 12.7 SEC (12.0-15.0) 12/26/18 13:30 INR 0.99 (0.83-1.16) 12/26/18 13:30 Physical Exam - Physical Exam General Appearance: alert, no apparent distress EENT: PERRL/EOMI, normal ENT inspection Neck: non-tender, full range of motion, supple Respiratory: chest non-tender, lungs clear, normal breath sounds Cardiac/Chest: normal peripheral pulses, regular rate, rhythm, No edema Abdomen: non-tender, soft, No organomegaly Back: Normal inspection Skin: other (Large bilateral lower extremity ecchymoses and mild hematoma over anterior shins, no other rashes.) Extremities: normal range of motion, non-tender, other (Skin changes above), No pedal edema ICD10 Worksheet Patient Problems: Problems Problem Status Onset Encephalopathy acute Acute
[2018-12-28 12:13] LABS: CREATINE KINASE 5293 IU/L (0-156)
--- NOTE | 2018-12-28 12:52 | PCMIDPN ---
Assessment/Plan: Assessment: 38-year-old woman with neutrophilic pleocytosis with normal glucose and protein in her CSF in the setting of a witnessed seizure and polysubstance abuse. Her rapid recovery in mentation argues against an infectious cause of meningitis or encephalitis. Moreover, even with early viral meningitis where a neutrophil predominant pleocytosis is expected, her normal protein level again argues against this scenario. It is likely that her seizure and or recreational drugs cause the CSF pleocytosis. As she has recovered her mentation and is eating will transition to a short course of an oral antibiotic targeted towards aspiration pneumonitis/pneumonia. 1. Encephalopathy; likely postictal with contribution from severe metabolic derangements 2. Neutrophilic pleocytosis in CSF, likely secondary to seizure and/or recreational drug 3. Mild rhabdomyolysis, likely secondary to seizure 4. Chronic alcohol abuse 5. Polysubstance abuse 6. Aspiration pneumonitis/pneumonia Plan: 1. Stop ceftriaxone 2. Start Augmentin 875/125 twice daily; stop date placed in medical record 3. Reviewed in detail potential side effects of beta-lactam antibiotics to include: allergy, rash, nausea, antibiotic-associated diarrhea, Clostridioides difficile colitis. 4. Will continue to follow Haroon Aguilar MD Infectious Diseases 12/28/18 12:52 Subjective: No fever or chills over the past 24 hr. Overall she is much improved but not yet back to baseline. No new rash, myalgias, arthralgias, diarrhea, abdominal pain. Patient's boyfriend at bedside reports that he witnessed a "grand mal" seizure with frothing at the mouth and muscle jerking. Patient notes that prior to becoming confused at home she did have a mild cough and has developed a productive cough since hospitalization. She notes having a single adult, healthy indoor only cat at home and no other animal exposures. Her daughter does have dribbles which are maintained at her father's house which is separate from her mother's house. Patient has not directly contacted the dribbles who are healthy. She notes no hiking or camping and no travel outside of the area in the past few months. Objective: Vital Signs Temp Pulse Resp BP Pulse Ox 37.3 C 108 H 20 133/95 H 95 12/28/18 11:36 12/28/18 11:36 12/28/18 11:36 12/28/18 11:36 12/28/18 11:36 Laboratory Results 12/28/18 05:30 12/28/18 11:00 12/27/18 12/28/18 12/29/18 05:59 05:59 05:59 Intake Total 2833 6455 Output Total 3053 6340 Balance -217 115 Ongoing monitoring for antimicrobial toxicity with: CBC, BMP, interval historical information, and interval physical exam. Discussed treatment/diagnostic testing and testing results with admitting provider(s). Personally reviewed interval laboratory results. Personally reviewed the images and interpreted the following radiographs: Chest x-ray from admission showing clear lung carey - Physical Exam General Appearance: no apparent distress, non-toxic EENT: No scleral icterus Respiratory: No respiratory distress, No accessory muscle use Neck: full range of motion, supple Skin: No rash, No erythema Neuro/Psych: alert, oriented x 3, depressed affect, No confused ICD10 Worksheet Patient Problems: Problems Problem Status Onset Encephalopathy acute Acute
--- NOTE | 2018-12-28 13:43 | HOSPPROG ---
Hospitalist Progress Note Assessment/Plan: 38 year old female with pmh of polysubstance abuse, etoh abuse, brought in with hyponatremia and encephalopathy. 1. Acute toxic/metabolic encephalopathy: she is more awake today but still clearly confused. I am concerned she may have ingested something. she does not seem to be withdrawing, low susp for meningitis at this point. she is more clear compared to this morning however. -seen by ID, vanc/amp stopped, low susp for meningitis -transitioned today to augmentin for possible aspiration/pna -monitor cultures -correct electrolyte imbalances. -monitor for wd 2. Hyponatremia: Suspect this may be multifactorial from poor solute (tea and toast), inadequate intake, and SIADH. -up to 134 today. -on LR with K -repeat sodium at 1500 -avoid overcorrection 3. SIRS: Leukocytosis, tachy. No clear source of infection. Treating as above. 4. Hypokalemia: Severe. In setting of alcohol abuse. - Placed on ICU K replacement protocol, also monitoring Magnesium levels - Telemetry 5. Rhabdomyolysis: CK rising. Challenging situation as limited in ability to give fluids with hypoNa. - CK levels rising despite LR at 200ml/hr -oncrease LR to 250 per hour -follow CK and renal function 6. Polycythemia: Suspect hemoconcentrated. Will recheck after IV fluids. 7. Alcohol abuse: She recently started on vivitrol. Unclear how much she is currently drinking. CIWA VTE ppx: LMWH Code: full Dispo: remain icu i spent 40 minutes of critical care time on the management of this patient Subjective: better today, still off balance Objective: Vital Signs Temp Pulse Resp BP Pulse Ox 37.3 C 108 H 20 133/95 H 95 12/28/18 11:36 12/28/18 11:36 12/28/18 11:36 12/28/18 11:36 12/28/18 11:36 Laboratory Results 12/28/18 05:30 12/28/18 11:00 12/27/18 12/28/18 12/29/18 05:59 05:59 05:59 Intake Total 2833 6455 Output Total 3050 6340 Balance -217 115 PT 12.7 SEC (12.0-15.0) 12/26/18 13:30 INR 0.99 (0.83-1.16) 12/26/18 13:30 - Physical Exam Constitutional: no apparent distress, appears nourished, not in pain Eyes: PERRL, anicteric sclera, EOMI Ears, Nose, Mouth, Throat: moist mucous membranes, hearing normal, ears appear normal, no oral mucosal ulcers Cardiovascular: regular rate and rhythym, no murmur, rub, or gallop Respiratory: no respiratory distress, no rales or rhonchi, clear to auscultation Gastrointestinal: normoactive bowel sounds, soft, non-tender abdomen, no palpable masses Genitourinary: no bladder fullness, no bladder tenderness, no renal bruits Skin: no rashes or abrasions, no fluctuance, no induration Musculoskeletal: full muscle strength, no muscle tenderness, normal joint ROM Neurologic: AAOx3, sensation intact bilaterally Psychiatric: interacting appropriately, not anxious, not encephalopathic, thought process linear Lymph, Heme, Immunologic: no cervical LAD, no supraclavicular LAD ICD10 Worksheet Patient Problems: Problems Problem Status Onset Encephalopathy acute Acute - ICD10 Problem Qualifiers (1) Encephalopathy acute
[2018-12-28] MEDS ORDERED: CALCIUM CARBONATE 500 MG CHEWABLE TAB PO PRN (19:27)
[2018-12-28] MEDS ORDERED: PROTOCOL K PHOSPHATE 1 DOSE IV PRN (19:59)
[2018-12-28] MEDS ORDERED: K PHOS 20 MMOL in D5W 250 ML IV ONE (20:00)
[2018-12-28] MEDS: PANTOPRAZOLE SODIUM 40 MG TAB PO SCH (20:10)
[2018-12-28] MEDS: LR 1,000 ML IV SCH (22:00)
[2018-12-29] MEDS ORDERED: K PHOS 10 MMOL in D5W 250 ML IV ONE (05:41)
[2018-12-29] MEDS ORDERED: MAGNESIUM SULF 2 GM/WATER 50 ML IV ONE (05:41)
[2018-12-29 05:53] LABS: CREATINE KINASE 4954 IU/L (0-156)
[2018-12-29] MEDS: LR 1,000 ML IV SCH ×2 (06:10→14:45)
[2018-12-29] MEDS: AMOXICILLIN/CLAVULANATE POT 875/125 MG TAB PO SCH ×2 (08:45→21:01)
[2018-12-29] MEDS: PANTOPRAZOLE SODIUM 40 MG TAB PO SCH (08:45)
[2018-12-29] MEDS: THIAMINE HCL 100 MG TAB PO SCH (08:45)
[2018-12-29] MEDS: ENOXAPARIN 40 MG/0.4 ML SYR SC SCH (08:45)
--- NOTE | 2018-12-29 14:21 | HOSPPROG ---
Hospitalist Progress Note Assessment/Plan: 38 year old female with pmh of polysubstance abuse, etoh abuse, brought in with hyponatremia and encephalopathy. 1. Acute toxic/metabolic encephalopathy: Resolved but likely was related to ingestion and electrolyte abnormalities. -seen by ID, vanc/amp stopped, low susp for meningitis -transitioned to augmentin for possible aspiration/pna -monitor cultures -correct electrolyte imbalances. -monitor for wd 2. Hyponatremia: Suspect this may be multifactorial from poor solute (tea and toast), inadequate intake, and SIADH. -up to 135 -on LR -repeat sodium at 1500 -avoid overcorrection 3. SIRS: Leukocytosis, tachy. No clear source of infection. Treating as above. 4. Hypokalemia: Severe. In setting of alcohol abuse. - Placed on ICU K replacement protocol, also monitoring Magnesium levels - Telemetry 5. Rhabdomyolysis: CK rising. Challenging situation as limited in ability to give fluids with hypoNa. - CK levels seems to have finally peaked at around 5200, now down to 4900. - LR to 250 per hour -follow CK and renal function 6. Polycythemia: Suspect hemoconcentrated. Will recheck after IV fluids. 7. Alcohol abuse: She recently started on vivitrol. Unclear how much she is currently drinking. CIWA VTE ppx: LMWH Code: full Dispo: remain icu Subjective: feels better today, no complaints. less coughing. Objective: Vital Signs Temp Pulse Resp BP Pulse Ox 37.0 C 88 16 133/101 H 94 12/29/18 11:19 12/29/18 11:19 12/29/18 11:19 12/29/18 11:19 12/29/18 11:19 Laboratory Results 12/28/18 05:30 12/29/18 04:55 12/28/18 12/29/18 12/30/18 05:59 05:59 05:59 Intake Total 6419 5495 Output Total 6340 3500 Balance 115 1994 PT 12.7 SEC (12.0-15.0) 12/26/18 13:30 INR 0.99 (0.83-1.16) 12/26/18 13:30 - Physical Exam Constitutional: no apparent distress, appears nourished, not in pain Eyes: PERRL, anicteric sclera, EOMI Ears, Nose, Mouth, Throat: moist mucous membranes, hearing normal, ears appear normal, no oral mucosal ulcers Cardiovascular: regular rate and rhythym, no murmur, rub, or gallop Respiratory: no respiratory distress, no rales or rhonchi, clear to auscultation Gastrointestinal: normoactive bowel sounds, soft, non-tender abdomen, no palpable masses Genitourinary: no bladder fullness, no bladder tenderness, no renal bruits Skin: no rashes or abrasions, no fluctuance, no induration Musculoskeletal: full muscle strength, no muscle tenderness, normal joint ROM Neurologic: AAOx3, sensation intact bilaterally Psychiatric: interacting appropriately, not anxious, not encephalopathic, thought process linear Lymph, Heme, Immunologic: no cervical LAD, no supraclavicular LAD ICD10 Worksheet Patient Problems: Problems Problem Status Onset Encephalopathy acute Acute - ICD10 Problem Qualifiers (1) Encephalopathy acute
--- NOTE | 2018-12-29 15:29 | PDINTPN ---
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 # encephalopathy. Severe. Initial concerns for meningitis. CSF had mild pleocytosis but given fast interval improvement and mom normal CSF glucose and protein meningitis unlikely. Although Utox was negative her alcohol level was elevated and she endorses taking synthetic drug # rhabdomyolysis. Prolonged period of being down plus stimulant drug use # agitation. Life-threatening. Requiring high-dose antipsychotics and benzodiazepines. # hypokalemia. Improved. Initially severe and life-threatening. Received 405 meq in 24 hours. Suspect due to drug use and poor solute intake # hypophosphatemia. # hypomagnesemia # hyponatremia. Resolved, Initially severe. suspect due to poor drug use and poor solute intake # ecchymoses. Bilateral anterior shins. Appears traumatic related. Denies abuse or assault. She thinks she may have ran into things while she was intoxicated # alcohol and drug intoxication. Endorses marijuana, synthetic marijuana, ecstasy, other drugs. Denies IV drug use PLAN # LR 250/hr until rhabdo resolves # schedule Mag oxide 400 p.o. Three times daily # schedule oral phosphate repletion and encourage milk consumption # Agree with ceftriaxone 2 g daily to complete a 5 day total course # CIWA for possible alcohol withdrawal # multivitamin, thiamine, folate # Feeding - regular diet # Analgesia APAP, # Sedation trazodone for sleep # Thromboprophylaxis - SQ hep # Head of bed elevated # Ulcer prophylaxis - not indicated # Glucose SSI # Skin no skin breakdown # Delirium - delirium precautions # transfer to [facility] 12/29/18 15:29 Subjective: Hypokalemia improved., still with hypophosphatemia hypomagnesemia. Mental status continues to improve. CK slowly trending down. Good urine output. Patient source is seizing synthetic marijuana Objective: Vital Signs Temp Pulse Resp BP Pulse Ox 37.0 C 88 16 133/101 H 94 12/29/18 11:19 12/29/18 11:19 12/29/18 11:19 12/29/18 11:19 12/29/18 11:19 Laboratory Results 12/28/18 05:30 12/29/18 04:55 12/28/18 12/29/18 12/30/18 05:59 05:59 05:59 Intake Total 6455 5495 Output Total 6305 3500 Balance 115 1994 PT 12.7 SEC (12.0-15.0) 12/26/18 13:30 INR 0.99 (0.83-1.16) 12/26/18 13:30 Physical Exam - Physical Exam General Appearance: alert, no apparent distress EENT: normal ENT inspection, No scleral icterus (R), No scleral icterus (L) Neck: normal inspection, No thyromegaly Respiratory: No respiratory distress, No accessory muscle use, No wheezing, No retractions Cardiac/Chest: regular rate, rhythm, No edema Abdomen: No organomegaly, No pulsatile mass, No guarding, No rebound Skin: normal color, warm/dry, other Extremities: normal range of motion, No pedal edema, No swelling Neuro/Psych: no motor/sensory deficits, alert, normal mood/affect, oriented x 3 ICD10 Worksheet Patient Problems: Problems Problem Status Onset Encephalopathy acute Acute
[2018-12-29] MEDS ORDERED: traZODone 50 MG TAB PO PRN (15:30)
[2018-12-29] MEDS: POTASSIUM/SODIUM PHOSPHATE 1 PKT PO SCH ×2 (16:56→21:01)
[2018-12-29] MEDS: MAGNESIUM OXIDE 400 MG TAB PO SCH ×2 (17:04→21:01)
[2018-12-29] MEDS ORDERED: LORazepam 1 MG TAB PO PRN (17:19)
[2018-12-29] MEDS: FAMOTIDINE 20 MG TAB PO SCH (19:32)
[2018-12-30 06:15] LABS: CREATINE KINASE 2457 IU/L (0-156)
[2018-12-30 06:16] VITALS: BP 113/78
[2018-12-30] MEDS: LR 1,000 ML IV SCH (07:55)
[2018-12-30] MEDS: AMOXICILLIN/CLAVULANATE POT 875/125 MG TAB PO SCH (08:40)
[2018-12-30] MEDS: MAGNESIUM OXIDE 400 MG TAB PO SCH (08:40)
[2018-12-30] MEDS: FAMOTIDINE 20 MG TAB PO SCH (08:40)
[2018-12-30] MEDS: THIAMINE HCL 100 MG TAB PO SCH (08:41)
[2018-12-30] MEDS: ENOXAPARIN 40 MG/0.4 ML SYR SC SCH (08:41)
[2018-12-30] MEDS: POTASSIUM/SODIUM PHOSPHATE 1 PKT PO SCH (08:41)
--- NOTE | 2018-12-30 09:53 | ASDISCHSUM ---
Discharge Information Plan Status:Home with No Needs Medically Cleared to Leave: Discharge Date: D/C Disposition:Home, Routine, Self-Care ADT D/C Disposition: Projected Discharge Date:12/30/2018 12:00 AM Transportation at D/C:Self Discharge Delay Reason: Follow-Up Date:12/30/2018 12:00 AM Discharge Slot: Final Diagnosis: Placement Information Patient Contact Information Contact Name:OSMAN Relationship:Mother Address:[address] [place] [address] City:[place] Alternate Phone: State/Zip Code:[place] [address] Email: Financial Information Financial Class:Medicaid Primary Plan Desc:[employer] Primary Plan Number:[id number] Secondary Plan Desc: Secondary Plan Number: Assessment Information [facility] Initial CM Assessment Living Arrangements What is your living Answers: Alone arrangement? Who do you live with? Type Of Residence What kind of residence do Answers: Apartment you live in? Discharge Plan Comments Coordination Status Comments Notes: Patient is a 38yo single female with hx of alcoholism and depression who was brought to [facility] ER after being found unresponsive. Patient's mother reports she was recently started on a Vivitrol injection to help with her etoh addiction. However, the mother does not know how much she has been currently drinking. Patient does have a daughter who occasionally comes to visit her. Patient is being admitted for acute toxic metabolic encephalopathy, hyponatremia, SIRS, hypokalemia, rhabodomyolysis, polycythemia, and etoh abuse. Patient's nurse reports she has multiple bruises and scrapes that are not consistent with a fall. Patient has been inconsistent in answering questions about her circumstances. Patient does have a boyfriend who is in senior care but gets out on work release. Dr. Weaver with ID is evaluating patient for meningitis. 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 D/C plan TBD. CM will follow. Date Signed: 12/27/2018 01:06 PM Electronically Signed By:Darby Chavez LCSW Case Management Discharge Plan Note Case Management Discharge Discharge Order Complete? Answers: Yes Patient to Obtain Answers: via Family Medications Transportation Arranged Answers: Family/Friends Discharge Comments Notes: CM met with pt, completed CAGE. Pt says her providers at [facility] have been most helpful to her in her path to recovery. Pt reports she is motivated to maintain sobriety at this point and says she has family and friends who can support her. CM provided education about maintaining sobriety and request f/u appt with PCP. CM made her an appt with Dr. Jaime for Tomorrow at 12:30pm. Pt was appreciative of information. CM emailed Gwen Aguiar with updated information on D/C. CM referred pt to [facility]. Date Signed: 12/30/2018 09:51 AM Electronically Signed By:STANLEY Sylvester Intervention Information
--- NOTE | 2018-12-30 09:54 | ASMTLACE ---
LACE Length of stay for Answers: 3 days current admission Acuity / Level of Answers: Yes Care: Did the patient have an inpatient admission? # of Emergency department Answers: 1-2 visits in the last 6 months Social determinants Answers: History of substance abuse (ETOH, street drugs, prescription drugs, etc.) Mental health diagnosis (anxiety, depression, pers onality disorders, etc.) Score: 13 Date Signed: 12/30/2018 09:52 AM Electronically Signed By:STANLEY Sylvester
[2018-12-30] MEDS ORDERED: MAGNESIUM SULF 2 GM/WATER 50 ML IV ONE (11:18)
--- NOTE | 2018-12-30 16:54 | PDDCSUM ---
Discharge Summary Discharge Summary: Discharge diagnosis Toxic metabolic encephalopathy Hyponatremia SIRS criteria Hypokalemia Hypophosphatemia Hypo magnesemia Polysubstance abuse Rhabdomyolysis Patient presents to the emergency room for with acute encephalopathy. She was also noted to be severely hyponatremic. CT of her head showed no acute abnormality. There was concern for possible meningitis versus a seizure versus ingestion versus alcohol withdrawal. A lumbar puncture was obtained and because the elevated white count of her CSF she was started on min meningitis coverage with antibiotics. Infectious Disease was consulted and these medications were stopped although the patient was transitioned over to an antibiotic for coverage for possible pneumonia. The patient was started on fluids for her hyponatremia and this had to be carefully balanced with the fact that the patient was in rhabdomyolysis and was requiring aggressive fluid resuscitation. Her creatinine kinase peaked at over 5000 despite aggressive fluid resuscitation and then started to finally trended down. The patient had substantial bruising bilaterally to her lower extremities. When the patient was finally more oriented she acknowledged that she had tripped over a short coffee table when she was altered. The patient's encephalopathy was thought to be secondary to an ingestion of some sort exacerbated by severe hyponatremia and electrolyte abnormalities. The patient denied using any substance acutely but did admit to polysubstance abuse. Over time her hyponatremia resolved and her CK trended down to normal level and she was able to be taken off of IV fluids. Her mental status returned to normal and she was discharged home to follow up with her primary care provider for further evaluation and management of her underlying medical problems. She was encouraged to stop drinking and taking drugs Dispo Home independent New medications None I spent over 30 min on the discharge of this patient
== END 2018-12-30 12:40 | disposition home or self-care (01) | DRG 52 ==
LOC: EDUNIT# → EEVIPCON 16:07 → F2N 17:05
PROVIDERS: ADMIT Internal Medicine; ATTEND Internal Medicine
PROC: 009U3ZX Drainage of Spinal Canal, Percutaneous Approach, Diagnostic (ICD-10-PCS; principal; 2018-12-26)
DX: G92 Toxic encephalopathy (principal); J69.0 Pneumonitis due to inhalation of food and vomit; M62.82 Rhabdomyolysis; E83.42 Hypomagnesemia; E83.39 Other disorders of phosphorus metabolism; E87.1 Hypo-osmolality and hyponatremia; E86.9 Volume depletion, unspecified; R65.10 Systemic inflammatory response syndrome (SIRS) of non-infectious origin without acute organ dysfunction; E87.6 Hypokalemia; F10.20 Alcohol dependence, uncomplicated; F32.9 Major depressive disorder, single episode, unspecified; F12.90 Cannabis use, unspecified, uncomplicated; F19.929 Other psychoactive substance use, unspecified with intoxication, unspecified
CPT/HCPCS: 80305; 82435-PO; 82565-PO; 82947-PO; 84132-PO; 84295-PO; 84520-PO; 85014-ER; 92523-GN; 92610-GN; 96365; 96366; 97161-GP; 97165-GO; G0472; G0480; J0133; J0290; J0696; J1630; J1650; J2060; J2250; J3370; J3411; J3475; J3480